=== PATIENT | male | born 2000 ===

== ENCOUNTER 2020-02-04 15:03 | Emergency (ER) | payer OTHER ==
[~2020-02-04] VITALS: Ht 180.3 cm; Wt 95.5 kg
[2020-02-04 15:15] VITALS: BP 140/64
== END 2020-02-04 17:38 | disposition left against medical advice (07) ==
LOC: ER 15:04
DX: H57.11 Ocular pain, right eye (principal); Z53.21 Procedure and treatment not carried out due to patient leaving prior to being seen by health care provider